=== PATIENT | female | born 1960 | race Caucasian/White ===

== ENCOUNTER → 2018-02-17 11:25 | Outpatient (CLI) | payer BC, OTHER, SELFPAY ==
[2018-02-17 12:17] LABS: Add Manual Diff / Slide Review NO; Basophils Percent Auto 0.4 % (0-2); Eosinophils Percent Auto 3.6 % (2-4); Hematocrit 42.9 % (36-46); Hemoglobin 14.4 g/dL (12.0-16.0); Mean Corpuscular HGB Conc 33.5 % (30-36); Mean Corpuscular Hemoglobin 32.7 PG (26-34); Mean Corpuscular Volume 97.5 fL (80-100); Monocytes Percent Auto 7.3 % (3-14); Neutrophils Absolute Auto 3900 /uL (3000-5900); Neutrophils Percent Auto 62.7 % (50-75); Platelet Count 260 X10^3/uL (150-400); Red Cell Distribution Width 14.6 % (11.6-14.8); White Blood Cell Count 6.2 X10^3/uL (4.5-11.0)
[2018-02-17 12:41] LABS: Alanine Aminotransferase 49 IU/L (9-52); Albumin 4.6 g/dL (3.5-5.0); Albumin Globulin Ratio 1.5 (1.0-2.8); Alkaline Phosphatase 83 U/L (38-126); Aspartate Aminotransferase 40 IU/L (14-36); Bilirubin Total 0.6 mg/dL (0.2-1.3); Blood Urea Nitrogen 12 mg/dL (7-17); Calcium 8.9 mg/dL (8.4-10.2); Carbon Dioxide 33 mmol/L (22-32); Chloride 101 mmol/L (98-107); Cholesterol 212 mg/dL (140-199); Estimated Glomerular Filt Rate > 60.0 mL/min (>60); Glucose 94 mg/dL (70-100); HDL Cholesterol 65 mg/dL (40-60); HEMOLYSIS < 15 (0-50); LDL Cholesterol Calculated 118 mg/dL (<100); Potassium 3.6 mmol/L (3.4-5.1); Sodium 143 mmol/L (137-145); Total Protein 7.6 g/dL (6.3-8.2); Triglycerides 145 mg/dL (35-150)
[2018-02-17 13:24] LABS: TSH w/ Reflex to FT4 1.08 uIU/mL (0.47-4.68)
== END ==
PROVIDERS: Family Provider Family Medicine; PCP Family Medicine; Visit Provider Family Medicine
DX: Z00.00 Encounter for general adult medical examination without abnormal findings (principal)
CPT/HCPCS: 36415; 80053; 80061; 84443; 85025

== ENCOUNTER → 2018-03-30 15:30 | Outpatient (CLI) | payer BC, OTHER, SELFPAY ==
--- NOTE | 2018-03-30 | DI.MG.S_ITS ---
BILATERAL DIGITAL SCREENING MAMMOGRAM 3D/2D WITH CAD: 03/30/2018 CLINICAL: Routine screening. Family history of breast cancer. Comparison is made to exams dated: 02/11/2017 mammogram, 03/15/2014 mammogram, and 01/23/2013 mammogram - [facility]. There are scattered fibroglandular elements in both breasts. Current study was also evaluated with a Computer Aided Detection (CAD) system. No significant masses, calcifications, or other findings are seen in either breast. There has been no significant interval change. IMPRESSION: NEGATIVE There is no mammographic evidence of malignancy. A 1 year screening mammogram is recommended. This exam was interpreted at Station ID: [id number]. NOTE: For mammograms, a report in lay terms will be sent to the patient. Approximately 15% of breast malignancies will not be visualized mammographically. In the management of a palpable breast mass, a negative mammogram must not discourage biopsy of a clinically suspicious lesion. Electronically Signed By: Rafael jeff/madelaine:03/30/2018 16:08:41 letter sent: Normal Exam ACR BI-RADS Category 1: Negative 3341F
== END ==
PROVIDERS: PCP Family Medicine; Visit Provider Family Medicine
DX: Z12.31 Encounter for screening mammogram for malignant neoplasm of breast (principal); Z80.3 Family history of malignant neoplasm of breast
CPT/HCPCS: 77063; 77067

== ENCOUNTER → 2018-06-30 10:55 | Outpatient (CLI) | payer BC, OTHER, SELFPAY ==
[2018-06-30 12:34] LABS: Bacteria Urine None Seen
[2018-06-30 12:44] LABS: Appearance Urine UA CLEAR; Bilirubin Urine UA NEGATIVE (NEGATIVE); Color Urine UA YELLOW; Glucose Urine UA NEGATIVE (Negative); Ketones Urine UA NEGATIVE (NEGATIVE); Leukocyte Esterase Urine UA 1+ (NEGATIVE); Nitrite Urine UA NEGATIVE (Negative); Occult Blood Urine UA 1+ (Negative); Protein Urine UA NEGATIVE (Negative); Urobilinogen Urine UA 0.2 E.U./dL (0.2)
[2018-06-30 12:48] LABS: Culture Indicated Urine Specimen Cultured; RBC Urine 1-5/HPF (0-5/HPF); WBC Urine 5-10/HPF (0-5/HPF)
== END ==
PROVIDERS: PCP Family Medicine; Visit Provider Registered Nurse
DX: N39.0 Urinary tract infection, site not specified (principal)
CPT/HCPCS: 81001; 87086

== ENCOUNTER → 2018-07-26 09:21 | Outpatient (CLI) | payer BC, OTHER, SELFPAY ==
--- NOTE | 2018-07-26 09:24 | DI.RAD.S_ITS ---
PROCEDURE: XR CHEST 2V INDICATIONS: Productive cough TECHNIQUE: 2 views of the chest were acquired. COMPARISON: [facility], CR, XR CHEST 2 VIEWS, 07/15/2018, 11:45. [facility], CR, CHEST 2 VIEW, 09/13/2007, 11:52. FINDINGS: Surgical changes and devices: None. Lungs and pleura: Left mid lung infiltrate has decreased. No pleural effusions or pneumothorax. Mediastinum: Mediastinal contours are normal. Heart size is normal. Bones and chest wall: No suspicious bony abnormalities. Soft tissues appear unremarkable. IMPRESSION: Decreased left midlung infiltrate. Recommend a followup chest x-ray after adequate treatment and resolution of symptoms. Dictated by: Christopher Cohen M.D. on 07/26/2018 at 10:30 Approved by: Christopher Cohen M.D. on 07/26/2018 at 10:32
== END ==
PROVIDERS: PCP Family Medicine; Visit Provider Registered Nurse
DX: R05 Cough (principal); R91.8 Other nonspecific abnormal finding of lung field
CPT/HCPCS: 71046

== ENCOUNTER → 2018-08-03 11:19 | Outpatient (CLI) | payer BC, OTHER, SELFPAY ==
--- NOTE | 2018-08-03 11:22 | DI.RAD.S_ITS ---
PROCEDURE: XR CHEST 2V INDICATIONS: cough, fever TECHNIQUE: 2 views of the chest were acquired. COMPARISON: [facility], , XR CHEST 2V, 07/26/2018, 9:32. [facility], , CHEST 2 VIEW, 09/13/2007, 11:52. FINDINGS: Surgical changes and devices: None. Lungs and pleura: Lungs are clear. No pleural effusions or pneumothorax. Mediastinum: Mediastinal contours are normal. Heart size is normal. Bones and chest wall: No suspicious bony abnormalities. Soft tissues appear unremarkable. IMPRESSION: Normal for age, source of current cough and fever symptoms is not seen. Dictated by: Marshal Caballero M.D. on 08/03/2018 at 12:41 Approved by: Marshal Caballero M.D. on 08/03/2018 at 12:41
[2018-08-03 11:58] LABS: Appearance Urine UA CLEAR; Bilirubin Urine UA NEGATIVE (NEGATIVE); Color Urine UA YELLOW; Glucose Urine UA NEGATIVE (Negative); Ketones Urine UA NEGATIVE (NEGATIVE); Leukocyte Esterase Urine UA NEGATIVE (NEGATIVE); Nitrite Urine UA NEGATIVE (Negative); Occult Blood Urine UA TRACE-INTACT (Negative); Protein Urine UA NEGATIVE (Negative); Urobilinogen Urine UA 0.2 E.U./dL (0.2); pH Urine UA 6.5 (4.5-8.0)
== END ==
PROVIDERS: PCP Family Medicine; Visit Provider Registered Nurse
DX: R05 Cough (principal); R50.9 Fever, unspecified
CPT/HCPCS: 71046; 81003

== ENCOUNTER → 2019-01-05 17:50 | Outpatient (CLI) | payer BC, OTHER, SELFPAY ==
[2019-01-05 18:05] LABS: Appearance Urine UA CLEAR; Bilirubin Urine UA NEGATIVE (NEGATIVE); Color Urine UA YELLOW; Glucose Urine UA NEGATIVE (Negative); Ketones Urine UA NEGATIVE (NEGATIVE); Leukocyte Esterase Urine UA TRACE (NEGATIVE); Nitrite Urine UA NEGATIVE (Negative); Occult Blood Urine UA TRACE-INTACT (Negative); Protein Urine UA NEGATIVE (Negative); Specific Gravity Urine UA <=1.005 (1.000-1.035); Urobilinogen Urine UA 0.2 E.U./dL (0.2)
[2019-01-05 18:14] LABS: pH Urine UA 6.5 (4.5-8.0)
[2019-01-05 18:15] LABS: Amorphous Sediment Urine 1+; Bacteria Urine Few (2-10); Culture Indicated Urine Specimen Cultured; RBC Urine 0-1/HPF (0-5/HPF); Squamous Epithelial Cell Urine 5-10 /HPF (0-5/HPF); WBC Urine 5-10/HPF (0-5/HPF)
== END ==
PROVIDERS: PCP Family Medicine; Visit Provider Family Medicine
DX: R30.0 Dysuria (principal)
CPT/HCPCS: 81003; 81015; 87086

== ENCOUNTER → 2019-02-17 09:17 | Outpatient (CLI) | payer BC, OTHER, SELFPAY ==
[2019-02-17 09:56] LABS: Add Manual Diff / Slide Review NO; Basophils Absolute Auto 0 /uL (0-100); Basophils Percent Auto 0.4 % (0-2); Eosinophils Absolute Auto 300 /uL (0-450); Eosinophils Percent Auto 4.2 % (2-4); Hematocrit 39.8 % (36-46); Hemoglobin 13.6 g/dL (12.0-16.0); Lymphocytes Absolute Auto 1600 /uL (1100-4500); Lymphocytes Percent Auto 25.8 % (25-40); Mean Corpuscular HGB Conc 34.3 % (30-36); Mean Corpuscular Volume 96.1 fL (80-100); Monocytes Absolute Auto 400 /uL (0-900); Monocytes Percent Auto 7.3 % (3-14); Neutrophils Absolute Auto 3800 /uL (1500-7000); Neutrophils Percent Auto 62.3 % (50-75); Platelet Count 257 X10^3/uL (150-400); Red Blood Cell Count 4.14 X10^6/uL (4.0-5.2); Red Cell Distribution Width 13.1 % (11.6-14.8); White Blood Cell Count 6.1 X10^3/uL (4.5-11.0)
[2019-02-17 10:35] LABS: Alanine Aminotransferase 30 IU/L (9-52); Albumin 4.3 g/dL (3.5-5.0); Albumin Globulin Ratio 1.7 (1.0-2.8); Alkaline Phosphatase 96 U/L (38-126); Aspartate Aminotransferase 34 IU/L (14-36); BUN Creatinine Ratio 26.7 (6-22); Bilirubin Total 0.7 mg/dL (0.2-1.3); Blood Urea Nitrogen 16 mg/dL (7-17); Calcium 9.7 mg/dL (8.4-10.2); Carbon Dioxide 32 mmol/L (22-32); Chloride 100 mmol/L (98-107); Cholesterol 216 mg/dL (140-199); Estimated Glomerular Filt Rate > 60.0 mL/min (>60); Globulin 2.5 g/dL (1.7-4.1); Glucose 110 mg/dL (70-100); HDL Cholesterol 58 mg/dL (40-60); HEMOLYSIS < 15 (0-50); LDL Cholesterol Calculated 122 mg/dL (<100); Potassium 4.4 mmol/L (3.4-5.1); Sodium 141 mmol/L (137-145); Total Protein 6.8 g/dL (6.3-8.2); Triglycerides 179 mg/dL (35-150)
== END ==
PROVIDERS: PCP Family Medicine; Visit Provider Family Medicine
DX: E03.9 Hypothyroidism, unspecified (principal); I10 Essential (primary) hypertension
CPT/HCPCS: 36415; 80053; 80061; 84443; 85025

== ENCOUNTER 2019-03-20 08:21 | Emergency (ER) | payer BC, OTHER, SELFPAY ==
[2019-03-20 08:31] VITALS: BP 172/92; PULSE 76; RESP 16; TEMP 36.7; O2SAT 97; BMI 33.0
--- NOTE | 2019-03-20 09:33 | ED_ITS ---
HPI - Female Genitourinary General Chief complaint: Urogenital-Female Stated complaint: kidney infection Time Seen by Provider: 03/20/19 09:00 Source: patient Mode of arrival: Ambulatory Limitations: no limitations History of Present Illness HPI Narrative: Patient comes emergency department complaining of right flank pain and nausea. She states that about 6 weeks ago she was started on antibiotics for urinary tract infection but that when she was done with the antibiotics, symptoms seem to keep coming back. Patient states she now has right flank pain and pain at the base of her right neck. She states this has happened before when she gets a kidney infection. She denies any vomiting but has been nauseated. No dizziness. She states her dysuria is actually better since she was started on antibiotics again a few days ago. No fevers or chills. No chest pain or shortness of breath. No cough. No other complaints at this time. Related Data Home Medications Medication Instructions Recorded Confirmed albuterol sulfate [Ventolin HFA] 2 puff INH Q4HP PRN 03/20/19 03/20/19 amlodipine [Norvasc] 5 mg PO DAILY 03/20/19 03/20/19 atenolol 50 mg PO DAILY 03/20/19 03/20/19 escitalopram oxalate [Lexapro] 20 mg PO DAILY 03/20/19 03/20/19 hydrochlorothiazide 25 mg PO DAILY 03/20/19 03/20/19 losartan [Cozaar] 50 mg PO DAILY 03/20/19 03/20/19 Previous Rx's Medication Instructions Recorded levothyroxine [Synthroid] 50 mcg PO QAM #90 tab 02/01/18 nitrofurantoin macrocrystal 50 mg 50 mg PO BEDTIME PRN #60 cap 01/06/19 capsule nitrofurantoin monohyd/m-cryst 100 mg PO BID #4 cap 03/20/19 [Macrobid] Allergies Allergy/AdvReac Type Severity Reaction Status Date / Time moxifloxacin [MOXIFLOXACIN] Allergy Severe TOXIC Verified 03/20/19 08:31 PSYCHOSIS morphine Allergy Unknown Verified 03/20/19 08:31 Review of Systems Constitutional Constitutional: Denies chills, Denies fatigue, Denies fever(s), Denies frequent falls, Reports headache(s), Denies lethargy and Denies weakness Eyes Eyes: Denies change in vision, Denies eye discharge, Denies irritation and Esequiel es loss of vision ENT Ears, Nose, Mouth, and Throat: Denies change in voice, Denies dizziness, Reports headache(s), Denies neck pain, Denies sore throat and Denies throat swelling Cardiovascular Cardiovascular: Denies chest pain, Denies irregular heart rhythm, Denies lighth eadedness, Denies palpitations, Denies dyspnea, Denies dyspnea on exertion and Denies orthopnea Respiratory Respiratory: Denies cough, Denies dyspnea, Denies dyspnea on exertion and Denies wheezing Gastrointestinal Gastrointestinal: Denies abdominal pain, Denies change in bowel habits, Denies diarrhea, Reports nausea and Denies vomiting Genitourinary Genitourinary: Denies hematuria, Reports flank pain, Denies urinary incontinence and Denies urinary urgency Musculoskeletal Musculoskeletal: Denies back pain, Denies muscle weakness, Denies neck pain, Denies numbness and Denies tingling Integumentary/Breasts Skin/Breast: Denies pruritus, Denies erythema, Denies rash and Denies wounds Neurologic Neurologic: Denies behavioral changes, Denies confusion, Denies dizziness, Denies frequent falls, Reports headache(s), Denies loss of vision, Denies numbness, Denies tingling and Denies weakness Psychiatric Psychiatric: Denies anxiety, Denies behavioral changes, Denies confusion, Denies depression, Denies homicidal ideation and Denies suicidal ideation Endocrine Endocrine: Denies fatigue, Denies flushing and Denies palpitations Hematologic/Lymphatic Hematologic/Lymphatic: Denies easy bruising Allergic/Immunologic Allergic/Immunologic: Denies urticaria, Denies throat swelling and Denies wheezing Patient History Medical History Abnormal Pap smear of cervix (Resolved 2014) Anxiety (Chronic 1999) Chicken pox (Resolved) Colon polyps (Resolved 2009) Fibroids (Chronic 1985) Foot pain (Chronic 2014) Frequent UTI (Chronic 2011) Hayfever (Chronic) Hypertension (Chronic 2009) IBS (irritable bowel syndrome) (Chronic 1974) Osteopenia (Chronic 1994) Ovarian cyst (Resolved 1985) Shoulder pain (Chronic 2013) Surgical History Anesthesia (Resolved) H/O excision of ganglion cyst (Resolved 1985) History of left salpingo-oophorectomy (Resolved 1985) Status post appendectomy (Resolved 1974) Status post surgery (Resolved 01/03/16) Family History Father Heart disease Hypertension High cholesterol Mother Stroke Sister Hypertension Other COPD (chronic obstructive pulmonary disease) Liver cancer Substance Use Type: does not use Exam Initial Vital Signs Initial Vital Signs: Vital Signs Temperature 98.0 F 03/20/19 08:31 Pulse Rate 76 03/20/19 08:31 Respiratory Rate 16 03/20/19 08:31 Blood Pressure 172/92 H 03/20/19 08:31 Pulse Oximetry 97 03/20/19 08:31 Const General: cooperative and well developed Nutritional Appearance: well nourished Orientation: alert, awake, oriented x3 and not confused HENMT Head: normocephalic and atraumatic Ears: external ears normal Nose: external nose normal and No nasal discharge Face and sinus: face symmetric and No dry mucous membranes Mouth: oral mucosae normal and moist mucous membranes Teeth and gingiva: dentition normal Eyes General: appearance normal, both eyes and all related structures Eyelids: eyelids normal Conjunctivae: conjunctivae normal Sclera: sclerae normal Pupils: PERRL EOM: EOM intact bilaterally Neck Neck: normal visual inspection, trachea midline, No lymphadenopathy, No midline deformity and No JVD Lymphatic: No lymphedema Chest Chest: normal inspection of the chest Resp Effort & Inspection: normal respiratory effort, able to speak in complete sentences, no respiratory distress and no use of accessory muscles Auscultation: clear to auscultation bilaterally, no rales, no rhonchi and no wheezes Cardio Rate: regular rate Rhythm: regular rhythm Heart Sounds: no click, no gallops, no murmurs and no rubs Pulses: normal peripheral pulses GI Inspection: non-distended Palpation: soft, no hepatosplenomegaly, No guarding, No pulsatile mass and No tender Auscultation: normal bowel sounds Back/Spine/Pelvis Back: No CVA tenderness Cervical Spine: cervical ROM normal and No pain with cervical ROM Thoracic/Lumbar Spine: thoracic and lumbar spine normal to inspection Skin General: no rashes or lesions noted, No jaundice and No petechiae Neuro General: alert, oriented x3, gait normal and no focal motor deficits Speech: speech normal Extrem General: full ROM, no clubbing, cyanosis or edema, no pedal edema and no calf tenderness Psych Appearance: well kempt Mental Status: mental status grossly normal Attitude: cooperative Thought Content: normal and suicidality Judgment: judgment good Course Course Course Narrative: Patient was given IV fluids and treated symptomatically in the emergency department. She was worked up with labs, which showed mild elevations of her LFTs. Her urinalysis was unremarkable and CT scanner as as well. Ultrasound of the gallbladder showed no dilatation of the common bile duct, but did show fatty liver, which is most likely the cause of the patient's mildly elevated LFTs. I discussed with the patient that there is no evidence of a serious or emergent condition at this time. I am not sure why she is having the right flank pain, but workup does not indicate the need for further intervention at this time. We have discussed home management of symptoms, as well as the usual indications for return. Orders Ordered: Discontinued Medications Sodium Chloride (Normal Saline 0.9%) 1,000 mls @ 1,000 mls/hr IV BOLUS ONE Stop: 03/20/19 11:17 Last Infusion: 03/20/19 12:52 Dose: 0 mls/hr Documented by: Admin: 03/20/19 10:24 Dose: 1,000 mls/hr Documented by: JOSE Ketorolac Tromethamine (Toradol) 30 mg IV NOW ONE Stop: 03/20/19 10:04 Last Admin: 03/20/19 10:24 Dose: 30 mg Documented by: JOSE Ondansetron HCl (Zofran) 4 mg IV NOW ONE Stop: 03/20/19 10:04 Last Admin: 03/20/19 10:24 Dose: 4 mg Documented by: JOSE Vital Signs Vital signs: Vital Signs - 8 hr 03/20/19 08:31 Temperature 98.0 F Pulse Rate 76 Respiratory Rate 16 Blood Pressure 172/92 H Pulse Oximetry 97 MDM - Female Genitourinary Medical Records Attestation: I reviewed the patient's medical records. Lab Data Attestation: I reviewed the patient's lab results. Result diagrams: 03/20/19 10:13 03/20/19 10:13 Labs: Lab Results 03/20/19 03/20/19 Range/Units 10:13 10:13 WBC 9.3 (4.5-11.0) X10^3/uL RBC 4.40 (4.0-5.2) X10^6/uL Hgb 14.6 (12.0-16.0) g/dL Hct 42.7 (36-46) % MCV 97.0 (80-100) fL MCH 33.1 (26-34) PG MCHC 34.1 (30-36) % RDW 14.4 (11.6-14.8) % Plt Count 278 (150-400) X10^3/uL Neut % (Auto) 71.0 (50-75) % Lymph % (Auto) 19.4 L (25-40) % [place] % (Auto) 7.2 (3-14) % Eos % (Auto) 1.5 L (2-4) % Baso % (Auto) 0.9 (0-2) % Neut # (Auto) 6600 (3781-8121) /uL Lymph # (Auto) 1800 (9177-5729) /uL [place] # (Auto) 700 (0-900) /uL Eos # (Auto) 100 (0-450) /uL Baso # (Auto) 100 (0-100) /uL Sodium 139 (137-145) mmol/L Potassium 4.0 (3.4-5.1) mmol/L Chloride 102 (98-107) mmol/L Carbon Dioxide 29 (22-32) mmol/L BUN 21 H (7-17) mg/dL Creatinine 0.60 (0.52-1.04) mg/dL Estimated GFR > 60.0 (>60) mL/min BUN/Creatinine Ratio 35.0 H (6-22) Glucose 112 H (70-100) mg/dL Calcium 9.5 (8.4-10.2) mg/dL Total Bilirubin 0.7 (0.2-1.3) mg/dL AST 40 H (14-36) IU/L ALT 35 H (<35) IU/L Alkaline Phosphatase 93 (38-126) U/L Total Protein 7.5 (6.3-8.2) g/dL Albumin 4.5 (3.5-5.0) g/dL Globulin 3.0 (1.7-4.1) g/dL Albumin/Globulin Ratio 1.5 (1.0-2.8) Urine Dip Bedside Urine Glucose Negative Bedside Urine Bilirubin - Negative Bedside Urine Ketone - Negative Urine Specific [place] 1.010 Bedside Urine Occult Blood - Negative Bedside Urine pH 7.0 Bedside Urine Protein - Negative Bedside Urine Urobilinogen - Negative Bedside Urine Nitrite - Negative Bedside Urine Leukocytes - Negative Esterase Imaging Data CT scan - abdomen: Radiologist's impression: PROCEDURE: CT ABDOMEN PELVIS W CON INDICATIONS: R abd/flank pain TECHNIQUE: After the administration of intravenous contrast, 5 mm thick sections acquired from the diaphragm to the symphysis. 5 mm coronal and sagittal reformats were acquired. For radiation dose reduction, the following was used: automated exposure control, adjustment of mA and/or kV according to patient size. COMPARISON: None. FINDINGS: Image quality: Excellent. ABDOMEN: Lung bases: Lung bases are clear. Heart size is normal. Solid organs: Liver is normal in size and enhancement. Diffuse fatty change. Gallbladder is unremarkable. Biliary system is non dilated. Pancreas enhances normally. Spleen is normal in size and enhancement. No adrenal nodules. Kidneys demonstrate normal size and enhancement, without hydronephrosis. Peritoneum and bowel: Bowel loops demonstrate normal wall thickness and caliber. No free fluid or air. No findings suggestive of acute appendicitis. Nodes and vessels: No retroperitoneal or mesenteric adenopathy by size criteria. Aorta and inferior vena cava are normal in size. Mild atherosclerotic narrowing of the left common iliac artery. Miscellaneous: No ventral hernias. PELVIS: Genitourinary: Bladder wall thickness is normal. Miscellaneous: No inguinal hernias or adenopathy. Bones: No suspicious bony lesions. No vertebral body compression fractures. IMPRESSION: 1. Mild hepatic steatosis. 2. No evidence of acute abdominal process. 3. Incidental note made of the presence of a mild left common iliac artery stenosis. Dictated by: Ronnie Nixon M.D. on 03/20/2019 at 10:57 Approved by: Ronnie Nixon M.D. on 03/20/2019 at 11:01 US - abdomen: Radiologist's impression: PROCEDURE: US ABDOMEN LIMITED INDICATIONS: RIGHT UPPER QUADRANT PAIN TECHNIQUE: Real-time focused scanning was performed of the abdomen, with image documentation. COMPARISON: None. FINDINGS: Moderate hyperechoic hepatic echotexture consistent with fatty infiltration. No bile duct distortion foun, gallbladder appears normal, pancreas appears normal. IMPRESSION: Fatty infiltration throughout the liver, moderate in severity, otherwise normal limited right upper quadrant ultrasound. Dictated by: Marshal Caballero M.D. on 03/20/2019 at 13:15 Approved by: Marshal Caballero M.D. on 03/20/2019 at 13:16 Discharge Plan Departure Patient Disposition: Home Clinical Impression: Acute right flank pain Discharge Date/Time: 03/20/19 13:23 Instructions: DI for Abdominal Pain-Adult Activity Restrictions/Additional Instructions: Extensive workup today looks good. Your urinalysis was normal, which indicates that your antibiotics are indeed working. Your white blood cell count is also normal. Your liver function tests were slightly above normal, and because of this, a specific ultrasound of her gallbladder was performed. However, no abnormalities were noted in her gallbladder. At this point in time, there is no evidence of an emergent more serious cause of your symptoms. Most likely, your body is still working through the urinary tract infection that you been fighting. Please continue the antibiotics as directed, and take the extra it 2 days when you finish the current course that you are on. If you're not feeling better after Thanks weekend, please see your primary care physician for further evaluation. Prescriptions: New nitrofurantoin monohyd/m-cryst [Macrobid] 100 mg capsule 100 mg PO BID Qty: 4 RF: 0 No Action levothyroxine [Synthroid] 50 mcg tablet 50 mcg PO QAM Qty: 90 RF: 3 nitrofurantoin macrocrystal 50 mg capsule 50 mg PO BEDTIME PRN (Reason: post coital) Qty: 60 RF: 3 losartan [Cozaar] 50 mg tablet 50 mg PO DAILY RF: 0 amlodipine [Norvasc] 5 mg tablet 5 mg PO DAILY RF: 0 hydrochlorothiazide 25 mg tablet 25 mg PO DAILY RF: 0 albuterol sulfate [Ventolin HFA] 90 MCG/PUFF HFA aerosol inhaler 2 puff INH Q4HP PRN (Reason: Shortness Of Breath) RF: 0 atenolol 50 mg tablet 50 mg PO DAILY RF: 0 escitalopram oxalate [Lexapro] 10 mg tablet 20 mg PO DAILY RF: 0 Referrals: Hank Galeas MD [Primary Care Provider] -
[2019-03-20 09:58] VITALS: BP 164/95; PULSE 67; RESP 16; O2SAT 98
--- NOTE | 2019-03-20 10:14 | DI.CT.S_ITS ---
PROCEDURE: CT ABDOMEN PELVIS W CON INDICATIONS: R abd/flank pain TECHNIQUE: After the administration of intravenous contrast, 5 mm thick sections acquired from the diaphragm to the symphysis. 5 mm coronal and sagittal reformats were acquired. For radiation dose reduction, the following was used: automated exposure control, adjustment of mA and/or kV according to patient size. COMPARISON: None. FINDINGS: Image quality: Excellent. ABDOMEN: Lung bases: Lung bases are clear. Heart size is normal. Solid organs: Liver is normal in size and enhancement. Diffuse fatty change. Gallbladder is unremarkable. Biliary system is non dilated. Pancreas enhances normally. Spleen is normal in size and enhancement. No adrenal nodules. Kidneys demonstrate normal size and enhancement, without hydronephrosis. Peritoneum and bowel: Bowel loops demonstrate normal wall thickness and caliber. No free fluid or air. No findings suggestive of acute appendicitis. Nodes and vessels: No retroperitoneal or mesenteric adenopathy by size criteria. Aorta and inferior vena cava are normal in size. Mild atherosclerotic narrowing of the left common iliac artery. Miscellaneous: No ventral hernias. PELVIS: Genitourinary: Bladder wall thickness is normal. Miscellaneous: No inguinal hernias or adenopathy. Bones: No suspicious bony lesions. No vertebral body compression fractures. IMPRESSION: 1. Mild hepatic steatosis. 2. No evidence of acute abdominal process. 3. Incidental note made of the presence of a mild left common iliac artery stenosis. Dictated by: Ronnie Nixon M.D. on 03/20/2019 at 10:57 Approved by: Ronnie Nixon M.D. on 03/20/2019 at 11:01
[2019-03-20 10:22] LABS: Add Manual Diff / Slide Review NO; Basophils Absolute Auto 100 /uL (0-100); Basophils Percent Auto 0.9 % (0-2); Eosinophils Absolute Auto 100 /uL (0-450); Eosinophils Percent Auto 1.5 % (2-4); Hematocrit 42.7 % (36-46); Hemoglobin 14.6 g/dL (12.0-16.0); Lymphocytes Absolute Auto 1800 /uL (1100-4500); Lymphocytes Percent Auto 19.4 % (25-40); Mean Corpuscular HGB Conc 34.1 % (30-36); Mean Corpuscular Hemoglobin 33.1 PG (26-34); Monocytes Absolute Auto 700 /uL (0-900); Monocytes Percent Auto 7.2 % (3-14); Neutrophils Absolute Auto 6600 /uL (1500-7000); Platelet Count 278 X10^3/uL (150-400); Red Cell Distribution Width 14.4 % (11.6-14.8); White Blood Cell Count 9.3 X10^3/uL (4.5-11.0)
[2019-03-20] MEDS: ONDANSETRON 4 MG/2 ML INJ IV (10:24)
[2019-03-20] MEDS: KETOROLAC 60 MG/2 ML VIAL 30 MG IV (10:24)
[2019-03-20] MEDS: SODIUM CHLORIDE 0.9% 1,000 ML 1000 ML IV (10:24)
[2019-03-20 10:39] LABS: Alanine Aminotransferase 35 IU/L (<35); Albumin 4.5 g/dL (3.5-5.0); Albumin Globulin Ratio 1.5 (1.0-2.8); Alkaline Phosphatase 93 U/L (38-126); Aspartate Aminotransferase 40 IU/L (14-36); Bilirubin Total 0.7 mg/dL (0.2-1.3); Blood Urea Nitrogen 21 mg/dL (7-17); Calcium 9.5 mg/dL (8.4-10.2); Carbon Dioxide 29 mmol/L (22-32); Chloride 102 mmol/L (98-107); Estimated Glomerular Filt Rate > 60.0 mL/min (>60); Glucose 112 mg/dL (70-100); HEMOLYSIS < 15 (0-50); Sodium 139 mmol/L (137-145); Total Protein 7.5 g/dL (6.3-8.2)
[2019-03-20 11:38] VITALS: BP 134/77; PULSE 60; RESP 15; O2SAT 98
--- NOTE | 2019-03-20 11:53 | DI.US.S_ITS ---
PROCEDURE: US ABDOMEN LIMITED INDICATIONS: RIGHT UPPER QUADRANT PAIN TECHNIQUE: Real-time focused scanning was performed of the abdomen, with image documentation. COMPARISON: None. FINDINGS: Moderate hyperechoic hepatic echotexture consistent with fatty infiltration. No bile duct distortion foun, gallbladder appears normal, pancreas appears normal. IMPRESSION: Fatty infiltration throughout the liver, moderate in severity, otherwise normal limited right upper quadrant ultrasound. Dictated by: Marshal Caballero M.D. on 03/20/2019 at 13:15 Approved by: Marshal Caballero M.D. on 03/20/2019 at 13:16
== END 2019-03-20 13:23 | disposition home or self-care (01) ==
PROVIDERS: Emergency Provider Emergency Medicine; PCP Family Medicine
DX: R10.11 Right upper quadrant pain (principal)
CPT/HCPCS: 36415; 74177; 76705; 80053; 81003; 85025; 96361; 96374; 96375; 99283; 99284; J1885; J2405; Q9967

== ENCOUNTER → 2019-04-04 16:48 | Outpatient (CLI) | payer BC, OTHER, SELFPAY ==
--- NOTE | 2019-04-04 16:51 | DI.MG.S_ITS ---
BILATERAL DIGITAL SCREENING MAMMOGRAM 3D/2D WITH CAD: 04/04/2019 CLINICAL: Routine screening. Family history of breast cancer. Comparison is made to exams dated: 03/30/2018 mammogram, 02/11/2017 mammogram, and 03/15/2014 mammogram - [facility]. There are scattered fibroglandular elements in both breasts. Current study was also evaluated with a Computer Aided Detection (CAD) system. There are two immediately adjacent possible developing equal density focal asymmetries in the right breast at 3 o'clock posterior depth. This is more prominent. No other significant masses, calcifications, or other findings are seen in either breast. IMPRESSION: INCOMPLETE: NEEDS ADDITIONAL IMAGING EVALUATION The two immediately adjacent possible developing equal density focal asymmetries in the right breast are indeterminate. Additional views with possible ultrasound are recommended. This exam was interpreted at Station ID: [id number]. NOTE: For mammograms, a report in lay terms will be sent to the patient. Approximately 15% of breast malignancies will not be visualized mammographically. In the management of a palpable breast mass, a negative mammogram must not discourage biopsy of a clinically suspicious lesion. Electronically Signed By: Morgan Steinberg M.D. at/:04/05/2019 07:43:02 letter sent: Additional Imaging Needed ACR BI-RADS Category 0: Incomplete 3340F
== END ==
PROVIDERS: PCP Family Medicine; Visit Provider Family Medicine
DX: Z12.31 Encounter for screening mammogram for malignant neoplasm of breast (principal); Z80.3 Family history of malignant neoplasm of breast
CPT/HCPCS: 77063; 77067

== ENCOUNTER → 2019-04-27 13:16 | Outpatient (CLI) | payer BC, OTHER, SELFPAY ==
--- NOTE | 2019-04-27 13:18 | DI.US.S_ITS ---
LIMITED ULTRASOUND OF RIGHT BREAST: 04/27/2019 CLINICAL: Additional evaluation requested from prior study. Comparison is made to exams dated: 04/27/2019 mammogram, 04/04/2019 mammogram, 03/30/2018 mammogram, 02/11/2017 mammogram, 03/15/2014 mammogram, and 01/23/2013 mammogram - [facility]. Color flow ultrasound of the right breast 2-4 o'clock region was performed. Sanchez scale images of the real-time examination were reviewed. There is a 0.5 x 0.4 x 0.2 cm oval indistinct hypoechoic probable complicated cyst with increased through transmission/posterior acoustic enhancement, internal echogenic debris, and no vascularity on Doppler ultrasound located in the right breast at 3 o'clock 6-7 cm from the nipple. This appears to correlate with the finding seen on mammography. IMPRESSION: PROBABLY BENIGN 0.5 x 0.4 x 0.2 cm probable complicated cyst in the right breast at 3 o'clock 6-7 cm from the nipple. A follow-up mammogram and ultrasound in 6 months is recommended to demostrate stability (as well as stability of calcifications seen on comparison mammography). The patient is advised to monitor her breasts and to return sooner for re-evaluation should she feel anything grow or change. This exam was interpreted at Station ID: [id number]. Electronically Signed By: Sukh Freire M.D. ecl/:04/27/2019 14:44:55 letter sent: Followup Recommended Ultrasound BI-RADS: 3 Probably benign
--- NOTE | 2019-04-27 13:18 | DI.MG.S_ITS ---
UNILATERAL RIGHT DIGITAL DIAGNOSTIC MAMMOGRAM 3D/2D WITH ADDITIONAL VIEWS: 04/27/2019 CLINICAL: Additional evaluation requested from prior study. Comparison is made to exams dated: 04/04/2019 mammogram, 03/30/2018 mammogram, and 02/11/2017 mammogram - [facility]. There are scattered fibroglandular elements in right breast. The previously identified two immediately adjacent equal density focal asymmetries in the right breast at 3 o'clock posterior depth as described on comparison screening mammogram of 04/04/19 are less prominent with spot compression views. There are grouped coarse calcifications of the superior medial right breast at posterior depth that are stable in appearance to comparison screening mammogram of 03/30/18. IMPRESSION: INCOMPLETE: NEEDS ADDITIONAL IMAGING EVALUATION The previously identified two immediately adjacent equal density focal asymmetries in the right breast at 3 o'clock posterior depth as described on comparison screening mammogram of 04/04/19 are less prominent with spot compression views. A targeted ultrasound is recommended for further evaluation. There are grouped coarse calcifications of the superior medial right breast at posterior depth that are stable in appearance to comparison screening mammogram of 03/30/18. These are probably benign given stability; a follow-up diagnostic mammogram in 6 months is recommended to demonstrate continued stability. This exam was interpreted at Station ID: [id number]. NOTE: For mammograms, a report in lay terms will be sent to the patient. Approximately 15% of breast malignancies will not be visualized mammographically. In the management of a palpable breast mass, a negative mammogram must not discourage biopsy of a clinically suspicious lesion. Electronically Signed By: Sukh Freire M.D. ecl/:04/27/2019 14:00:10 ACR BI-RADS Category 0: Incomplete 3340F
== END ==
PROVIDERS: PCP Family Medicine; Visit Provider Family Medicine
DX: R92.8 Other abnormal and inconclusive findings on diagnostic imaging of breast (principal); R92.1 Mammographic calcification found on diagnostic imaging of breast; N64.89 Other specified disorders of breast
CPT/HCPCS: 76642; 77065; G0279

== ENCOUNTER → 2019-11-21 15:17 | Outpatient (CLI) | payer BC, OTHER, SELFPAY ==
--- NOTE | 2019-11-21 15:19 | DI.US.S_ITS ---
LIMITED ULTRASOUND OF RIGHT BREAST: 11/21/2019 CLINICAL: Right breast 6 month follow-up. Comparison is made to exams dated: 11/21/2019 mammogram, 04/27/2019 ultrasound, 04/27/2019 mammogram, 04/04/2019 mammogram, and 03/30/2018 mammogram - [facility]. Color flow and real-time ultrasound of the right breast 3 o'clock region were performed. Sanchez scale images of the real-time examination were reviewed. There is a stable 0.5 cm x 0.2 cm x 0.4 cm complicated cyst in the right breast at 3 o'clock posterior depth 7 cm from the nipple. No significant change. This appears to correlate with the finding seen on mammography. IMPRESSION: PROBABLY BENIGN The stable 0.5 cm cyst in the right breast is probably benign. A follow-up mammogram and possible ultrasound in 6 months is recommended to demostrate stability of mammographic findings. Findings and recommendations were conveyed to the patient at time of exam. This exam was interpreted at Station ID: [id number]. Electronically Signed By: Ida musa/:11/21/2019 16:34:21 letter sent: Followup Recommended Ultrasound BI-RADS: 3 Probably benign
--- NOTE | 2019-11-21 15:19 | DI.MG.S_ITS ---
UNILATERAL RIGHT DIGITAL DIAGNOSTIC MAMMOGRAM 3D/2D SHORT-TERM FOLLOW-UP: 11/21/2019 CLINICAL: Patient returns for a 6 month follow up of the right breast. Comparison is made to exams dated: 04/27/2019 mammogram, 04/04/2019 mammogram, and 03/30/2018 mammogram - [facility]. There are scattered fibroglandular elements in right breast. There is a stable oval asymmetry with fine calcifications in the right breast at 1 o'clock posterior depth. This is seen in additional views. The calcifications have not significantly changed. No other significant masses or calcifications are seen in the breast. IMPRESSION: INCOMPLETE: NEEDS ADDITIONAL IMAGING EVALUATION The oval asymmetry with calcifications in the right breast is stable. An ultrasound is recommended for verification and was performed immediatley following this study. The patient will need a follow up mammogram of the right breast in 6 months with magnification views to document stability of the calcifications. This exam was interpreted at Station ID: [id number]. NOTE: For mammograms, a report in lay terms will be sent to the patient. Approximately 15% of breast malignancies will not be visualized mammographically. In the management of a palpable breast mass, a negative mammogram must not discourage biopsy of a clinically suspicious lesion. Electronically Signed By: Ida musa/:11/21/2019 16:08:15 ACR BI-RADS Category 0: Incomplete [id number]
== END ==
PROVIDERS: PCP Family Medicine; Referring Provider Family Medicine; Visit Provider Family Medicine
DX: R92.8 Other abnormal and inconclusive findings on diagnostic imaging of breast (principal); R92.1 Mammographic calcification found on diagnostic imaging of breast; N60.01 Solitary cyst of right breast
CPT/HCPCS: 76642; 77065; G0279

== ENCOUNTER → 2020-05-14 15:01 | Outpatient (CLI) | payer OTHER, SELFPAY ==
--- NOTE | 2020-05-14 15:03 | DI.US.S_ITS ---
LIMITED ULTRASOUND OF RIGHT BREAST AND AXILLA: 05/14/2020 CLINICAL: Patient returns today to evaluate a density in the right breast. Comparison is made to exams dated: 05/14/2020 mammogram, 11/21/2019 ultrasound, 11/21/2019 mammogram, 04/27/2019 ultrasound, 04/27/2019 mammogram, and 04/04/2019 mammogram - [facility]. Ultrasound of the right breast 3 o'clock, and axilla regions was performed. There is a 0.4 cm x 0.4 cm x 0.3 cm cyst in the right breast at 3 o'clock posterior depth 7 cm from the nipple. This abnormality is not significantly changed. IMPRESSION: PROBABLY BENIGN The 0.4 cm x 0.4 cm x 0.3 cm cyst in the right breast is probably benign. A follow-up right mammogram and an ultrasound in 6 months is recommended to demonstrate stability. This exam was interpreted at Station ID: [id number]. Electronically Signed By: Scar canales/madelaine:05/14/2020 16:53:56 letter sent: Followup Recommended Ultrasound BI-RADS: 3 Probably benign
--- NOTE | 2020-05-14 15:03 | DI.MG.S_ITS ---
BILATERAL DIGITAL DIAGNOSTIC MAMMOGRAM 3D/2D: 05/14/2020 CLINICAL: Short term follow up, due bilaterally. Family history of breast cancer. Comparison is made to exams dated: 11/21/2019 mammogram, 04/27/2019 mammogram, 04/04/2019 mammogram, 03/30/2018 mammogram, and 11/21/2019 [facility]. There are scattered fibroglandular elements in both breasts. There is an oval asymmetry with fine calcifications in the right breast at 3 o'clock middle depth. This is not significantly changed. No other significant masses, calcifications, or other findings are seen in either breast. IMPRESSION: INCOMPLETE: NEEDS ADDITIONAL IMAGING EVALUATION The oval asymmetry in the right breast is indeterminate. An ultrasound is recommended. This exam was interpreted at Station ID: [id number]. NOTE: For mammograms, a report in lay terms will be sent to the patient. Approximately 15% of breast malignancies will not be visualized mammographically. In the management of a palpable breast mass, a negative mammogram must not discourage biopsy of a clinically suspicious lesion. SUMMARY: Targeted ultrasound is recommended for further evaluation and will be scheduled immediately following this exam. Electronically Signed By: Scar canales/madelaine:05/14/2020 16:52:09 ACR BI-RADS Category 0: Incomplete [id number]
== END ==
PROVIDERS: PCP Family Medicine; Referring Provider Family Medicine; Visit Provider Family Medicine
DX: R92.8 Other abnormal and inconclusive findings on diagnostic imaging of breast (principal); N60.01 Solitary cyst of right breast; Z80.3 Family history of malignant neoplasm of breast
CPT/HCPCS: 76642; 77066; G0279

== ENCOUNTER → 2021-02-20 12:56 | Outpatient (CLI) | payer OTHER, SELFPAY ==
--- NOTE | 2021-02-20 13:00 | DI.MG.S_ITS ---
BILATERAL DIGITAL DIAGNOSTIC MAMMOGRAM 3D/2D: 02/20/2021 CLINICAL: Short term follow up of the right breast, due for bilateral imaging. Comparison is made to exams dated: 05/14/2020 ultrasound, 05/14/2020 mammogram, 11/21/2019 ultrasound, and 11/21/2019 mammogram - [facility]. There are scattered fibroglandular elements in both breasts. There is a stable oval asymmetry in the right breast at 3 o'clock posterior depth. Fine calcifications demonstrate long-term stability. No other significant masses, calcifications, or other findings are seen in either breast. IMPRESSION: INCOMPLETE: NEEDS ADDITIONAL IMAGING EVALUATION The stable asymmetry in the right breast is indeterminate. A targeted ultrasound is recommended and will immediately follow. This exam was interpreted at Station ID: [id number]. NOTE: For mammograms, a report in lay terms will be sent to the patient. Approximately 15% of breast malignancies will not be visualized mammographically. In the management of a palpable breast mass, a negative mammogram must not discourage biopsy of a clinically suspicious lesion. Electronically Signed By: Johnathan Coker M.D. slc/:02/20/2021 15:37:16 ACR BI-RADS Category 0: Incomplete [id number]
--- NOTE | 2021-02-20 13:00 | DI.US.S_ITS ---
LIMITED ULTRASOUND OF RIGHT BREAST: 02/20/2021 CLINICAL: Patient returns today to evaluate a focal asymmetry in the right breast. Comparison is made to exams dated: 02/20/2021 mammogram, 05/14/2020 ultrasound, 05/14/2020 mammogram, 11/21/2019 mammogram, 11/21/2019 ultrasound, and 04/27/2019 ultrasound - [facility]. Color flow and real-time ultrasound of the right breast 3 o'clock region were performed. Sanchez scale images of the real-time examination were reviewed. There is a 0.4 cm x 0.3 cm x 0.2 cm oval cyst in the right breast at 3 o'clock middle depth 3 cm from the nipple. (Cyst previously documented at 7 cm from the nipple, this cyst is likely the same cyst based on the cine clips). This oval cyst displays internal echoes. This abnormality is decreased in size. Color flow imaging demonstrates that there is no vascularity present. IMPRESSION: PROBABLY BENIGN The 0.4 cm complicated cyst in the right breast is slightly decreased in size and is probably benign. A follow-up mammogram and an ultrasound in 12 months is recommended to demonstrate long-term stability. Exam findings were conveyed to the patient. This exam was interpreted at Station ID: [id number]. Electronically Signed By: Johnathan Coker M.D. slc/:02/20/2021 15:43:41 letter sent: Followup Recommended Ultrasound BI-RADS: 3 Probably benign
[2021-02-20 15:00] LABS: Add Manual Diff / Slide Review NO; Basophils Absolute Auto 100 /uL (0-100); Basophils Percent Auto 1.2 % (0-2); Eosinophils Absolute Auto 100 /uL (0-450); Eosinophils Percent Auto 1.8 % (2-4); Hematocrit 39.6 % (36-46); Hemoglobin 13.6 g/dL (12.0-16.0); Lymphocytes Absolute Auto 1700 /uL (1100-4500); Lymphocytes Percent Auto 25.9 % (25-40); Mean Corpuscular HGB Conc 34.3 % (30-36); Mean Corpuscular Hemoglobin 34.6 PG (26-34); Mean Corpuscular Volume 101.1 fL (80-100); Monocytes Absolute Auto 500 /uL (0-900); Monocytes Percent Auto 7.2 % (3-14); Neutrophils Absolute Auto 4200 /uL (1500-7000); Neutrophils Percent Auto 63.9 % (50-75); Platelet Count 199 X10^3/uL (150-400); Red Blood Cell Count 3.92 X10^6/uL (4.0-5.2); Red Cell Distribution Width 13.6 % (11.6-14.8); White Blood Cell Count 6.6 X10^3/uL (4.5-11.0)
[2021-02-20 15:33] LABS: Alanine Aminotransferase 34 IU/L (<35); Albumin 4.2 g/dL (3.5-5.0); Albumin Globulin Ratio 1.4 (1.0-2.8); Alkaline Phosphatase 79 U/L (38-126); Aspartate Aminotransferase 47 IU/L (14-36); BUN Creatinine Ratio 25.9 (6-22); Bilirubin Total 0.9 mg/dL (0.2-1.3); Blood Urea Nitrogen 15 mg/dL (7-17); Calcium 8.7 mg/dL (8.4-10.2); Carbon Dioxide 29 mmol/L (22-32); Chloride 101 mmol/L (98-107); Cholesterol 235 mg/dL (140-199); Estimated Glomerular Filt Rate > 60.0 mL/min (>60); Globulin 2.9 g/dL (1.7-4.1); Glucose 87 mg/dL (80-110); HDL Cholesterol 65 mg/dL (40-60); HEMOLYSIS 19 (0-50); LDL Cholesterol Calculated 135 mg/dL (<100); Potassium 3.6 mmol/L (3.4-5.1); Sodium 138 mmol/L (137-145); Total Protein 7.1 g/dL (6.3-8.2); Triglycerides 174 mg/dL (35-150)
[2021-02-20 16:12] LABS: Creatinine Urine Random 104.7 mg/dL
[2021-02-20 16:17] LABS: Microalbumi Creatinin Ratio Ur 24.8 ug/mg CR (<30); Microalbumin Urine Random 2.6 mg/dL (0-1.6)
[2021-02-20 16:42] LABS: Thyroid Stimulating Hormone 3.47 uIU/mL (0.47-4.68)
== END ==
PROVIDERS: PCP Family Medicine; Referring Provider Family Medicine; Visit Provider Family Medicine
DX: R92.8 Other abnormal and inconclusive findings on diagnostic imaging of breast (principal); N60.01 Solitary cyst of right breast; E03.9 Hypothyroidism, unspecified; I10 Essential (primary) hypertension
CPT/HCPCS: 36415; 76642; 77066; 80053; 80061; 82043; 82570; 84443; 85025; G0279

== ENCOUNTER → 2021-07-17 09:28 | Outpatient (CLI) | payer OTHER, SELFPAY ==
[2021-07-17 10:43] LABS: BUN Creatinine Ratio 23.1 (6-22); Blood Urea Nitrogen 15 mg/dL (7-17); Calcium 9.5 mg/dL (8.4-10.2); Carbon Dioxide 31 mmol/L (22-32); Chloride 105 mmol/L (98-107); Estimated Glomerular Filt Rate > 60.0 mL/min (>60); Glucose 106 mg/dL (80-110); HEMOLYSIS < 15 (0-50); Potassium 4.1 mmol/L (3.4-5.1); Sodium 141 mmol/L (137-145)
== END ==
PROVIDERS: PCP Family Medicine; Referring Provider Family Medicine; Visit Provider Family Medicine
DX: E87.1 Hypo-osmolality and hyponatremia (principal)
CPT/HCPCS: 36415; 80048